=== PATIENT | female | born 1985 | race Caucasian/White ===

== ENCOUNTER 2018-10-24 11:11 | Inpatient (IN) | payer MEDICAID, MEDICARE ==
[~2018-10-24] VITALS: Ht 162.6 cm; Wt 52.1 kg
--- NOTE | 2018-10-24 11:17 | NUR ---
THIS IS A 33 YO FEMALE WHO PRESENTS TO THE ER C/O INABILITY TO EAT/DRINK SINCE SATURDAY. DROOL NOTED AT CORNER OF PT'S MOUTH. PT DENIES PAIN WITH EATING/DRINKING. DENIES SENSATION OF BLOCKAGE. THRUSH NOTED IN PT'S MOUTH. PT REPORTS THAT HAS BEEN THERE "FOR A FEW DAYS'. HAIR APPEARS OILY AND MATTED. 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 PT HAS SPASTIC MOVEMENTS. PT ABLE TO ANSWER ALL QUESTIONS APPROPRIATELY, AO X 4 AND FOLLOW COMMANDS. [facility] 15. PERRLA. SANITOR EQUAL BILATERALLY. PT ABLE TO MOVE ALL EXTREMITIES, WITH SOME SPASTIC MOVEMENTS.
[2018-10-24] MEDS ORDERED: SODIUM CHLORIDE 0.9% 1,000 ML IV ONE (11:28)
[2018-10-24] MEDS ORDERED: SODIUM CHLORIDE FLUSH 10ML SYR IVF ONE (11:30)
[2018-10-24] MEDS ORDERED: LORazepam 2 MG/ML, 1ML IVPush ONE (11:30)
--- NOTE | 2018-10-24 12:00 | NUR ---
REPORT TO KOLE RAMIRES AND LUPILLO WHO ASSUMED CARE OF PT.
--- NOTE | 2018-10-24 12:00 | NUR ---
SBAR REPORT RECEIVED FROM RAJAT SHARIF.
[2018-10-24 12:01] LABS: BASOPHILS # (AUTO) 0.01 x10^3/uL (0-0.1); BASOPHILS % (AUTO) 0 % (0-1); EOSINOPHILS # (AUTO) 0.09 x10^3/uL (0-0.4); EOSINOPHILS % (AUTO) 1 % (1-7); LYMPHOCYTES # (AUTO) 1.06 x10^3/uL (1-3.4); LYMPHOCYTES % (AUTO) 11 % (22-44); MD NO; MEAN CORPUSCULAR HEMOGLOBIN 30.7 pg (27.0-34.8); MEAN PLATELET VOLUME 8.4 fL (7.4-10.4); MONOCYTES # (AUTO) 0.28 x10^3/uL (0.2-0.8); MONOCYTES % (AUTO) 3 % (2-9); NEUTROPHILS # (AUTO) 8.63 x10^3/uL (1.8-6.8); NEUTROPHILS % (AUTO) 86 % (42-75); PLATELET COUNT 257 x10^3/uL (130-400); RED BLOOD COUNT 5.56 x10^6/uL (3.82-5.3)
[2018-10-24] MEDS ORDERED: LORazepam 2 MG/ML, 1ML ONE (12:08)
[2018-10-24 12:12] LABS: ALANINE AMINOTRANSFERASE 58 U/L (12-78); ALBUMIN 4.5 g/dL (3.4-5.0); ANION GAP 7 mmol/L (5-15); CALCIUM 9.2 mg/dL (8.5-10.1); CHLORIDE 103 mmol/L (98-107); CREATININE 0.78 mg/dL (0.55-1.02)
[2018-10-24 12:14] LABS: ALKALINE PHOSPHATASE 79 U/L (45-117); BILIRUBIN,TOTAL 0.6 mg/dL (0.2-1.0); TOTAL PROTEIN 8.3 g/dL (6.4-8.2)
--- NOTE | 2018-10-24 12:15 | NUR ---
PT MEDICATED PER EMAR. PT TOLERATED WELL. PT AOX4. RESPS EVEN AND UNLABORED. SAO2 AND BP MONITORS IN PLACE. CALL LIGHT WITHIN REACH. DENIES ANY NEEDS AND CONCERNS AT THIS TIME.
[2018-10-24 12:34] LABS: ACETONE, SERUM Negative (Negative)
--- NOTE | 2018-10-24 12:38 | NUR ---
PT WAS NOT ABLE TO GO TO BR DUE TO UNSTEADY GAIT. PT PROVIDED BED CHRISTIE TO URINATE FOR UA. UA SENT. PT RESTING IN [facility]. PT AOX4. RESPS EVEN AND UNLABORED. SAO2 AND BP MONITORS IN PLACE. CALL LIGHT WITHIN REACH. DENIES ANY NEEDS AND CONCERNS AT THIS TIME.
[2018-10-24] MEDS ORDERED: AMAN100C7 PO (12:56)
[2018-10-24] MEDS ORDERED: LORA-446 PO (12:57)
[2018-10-24] MEDS ORDERED: MIRT15TA4 PO (12:58)
[2018-10-24] MEDS ORDERED: LORA1TAB PO (12:59)
[2018-10-24 13:05] LABS: CULTURE INDICATED? YES; MICROSCOPIC INDICATED
[2018-10-24 13:06] LABS: HCG UR SG 1.023 (1.003-1.030)
--- NOTE | 2018-10-24 13:17 | NUR ---
REPORT GIVEN TO HECTOR SHARIF. NEURO INTACT. PT AOX4. RESPS EVEN AND UNLABORED. OCCASIONAL JERKING MOVEMENT NOTED. PT ABLE TO MANAGE AIRWAY AND SECRETIONS. NPO STATUS MAINTAINED. ANXIETY DECREASED. AWAITING TRANSPORT TO [facility].
[2018-10-24] MEDS: SODIUM CHLORIDE 0.9% 1,000 ML IV SCH (13:32)
--- NOTE | 2018-10-24 13:38 | NUR ---
PT RESTING IN [facility]. PT AOX4. RESPS EVEN AND UNLABORED. SAO2 AND BP MONITORS IN PLACE. CALL LIGHT WITHIN REACH. DENIES PAIN, ANY NEEDS AND CONCERNS AT THIS TIME.
[2018-10-24] MEDS ORDERED: ONDANSETRON 2MG/ML, 2ML IVPush PRN (14:00)
[2018-10-24] MEDS ORDERED: ACETAMINOPHEN 325 MG TABLET PO PRN (14:00)
[2018-10-24] MEDS ORDERED: DOCUSATE 100 MG CAPSULE PO PRN (14:00)
[2018-10-24] MEDS ORDERED: BISACODYL 10 MG SUPP PR PRN (14:00)
[2018-10-24] MEDS ORDERED: ENALAPRILAT 1.25 MG/ML, 2ML IVPush PRN (14:00)
[2018-10-24] MEDS ORDERED: ONDANSETRON ODT 4 MG PO PRN (14:00)
--- NOTE | 2018-10-24 14:05 | NUR ---
REPORT GIVEN TO ZAKIA SHARIF. NEURO INTACT. PT AOX4. RESPS EVEN AND UNLABORED. OCCASIONAL JERKING MOVEMENT NOTED. PT ABLE TO MANAGE AIRWAY AND SECRETIONS. NPO STATUS MAINTAINED. ANXIETY DECREASED. AWAITING TRANSPORT TO [facility]. DENIES PAIN, ANY NEEDS AND CONCERNS AT THIS TIME.
[2018-10-24 14:50] VITALS: BP 149/96
[2018-10-24 14:51] LABS: HEMOGLOBIN A1C 5.7 % (4.2-6.3)
[2018-10-24] MEDS: ENOXAPARIN 40 MG/0.4 ML SQ SCH (15:00)
--- NOTE | 2018-10-24 15:22 | NUR ---
Mindi lopez in ED - 10/24/18 at 1524 by SOLITARIO NEURO CONSULT COMPLETE. AWAITING RECOMMENDATION AT THIS TIME.
[2018-10-24 16:30] VITALS: BP 104/70
--- NOTE | 2018-10-24 17:29 | NUR ---
NPO [place] sheet with swallow strategies and precautions was placed in patient's room on the whiteboard. Addendum: 10/24/18 at 1730 by TOÑA BENSON Amended: Links added.
[2018-10-24 19:45] VITALS: BP 124/78
[2018-10-24] MEDS: MIRTAZAPINE 15 MG TABLET PO SCH (20:31)
[2018-10-24] MEDS: LORazepam 1MG TABLET PO SCH (20:31)
[2018-10-24] MEDS: AMANTADINE 100 MG CAPSULE PO SCH (20:31)
[2018-10-24 20:54] LABS: MICROSCOPIC AUTO
[2018-10-24 20:57] LABS: CULTURE INDICATED? YES
[2018-10-25 02:19] VITALS: BP 126/85
[2018-10-25 05:51] LABS: ANION GAP 6 mmol/L (5-15); CALCIUM 8.8 mg/dL (8.5-10.1); CHLORIDE 106 mmol/L (98-107); CREATININE 0.74 mg/dL (0.55-1.02)
[2018-10-25 06:01] LABS: THYROID STIMULATING HORMONE 0.637 mIU/L (0.358-3.740)
[2018-10-25 06:03] LABS: BASOPHILS # (AUTO) 0.05 x10^3/uL (0-0.1); BASOPHILS % (AUTO) 1 % (0-1); EOSINOPHILS # (AUTO) 0.28 x10^3/uL (0-0.4); EOSINOPHILS % (AUTO) 4 % (1-7); LYMPHOCYTES % (AUTO) 21 % (22-44); MD NO; MEAN CORPUSCULAR HEMOGLOBIN 31.4 pg (27.0-34.8); MEAN CORPUSCULAR HGB CONC 33.6 g/dL (32.4-35.8); MEAN CORPUSCULAR VOLUME 93.4 fL (80-100); MEAN PLATELET VOLUME 8.4 fL (7.4-10.4); MONOCYTES # (AUTO) 0.66 x10^3/uL (0.2-0.8); MONOCYTES % (AUTO) 8 % (2-9); NEUTROPHILS # (AUTO) 5.35 x10^3/uL (1.8-6.8); NEUTROPHILS % (AUTO) 67 % (42-75); PLATELET COUNT 243 x10^3/uL (130-400); RED BLOOD COUNT 5.06 x10^6/uL (3.82-5.3)
[2018-10-25 07:43] VITALS: BP 121/77
[2018-10-25] MEDS: LORazepam 1MG TABLET PO SCH ×2 (08:55→20:45)
[2018-10-25] MEDS: AMANTADINE 100 MG CAPSULE PO SCH ×2 (08:56→20:45)
[2018-10-25] MEDS: SENNA/DOCUSATE TABLET PO SCH (08:56)
[2018-10-25] MEDS: SODIUM CHLORIDE 0.9% 1,000 ML IV SCH ×2 (09:00→20:56)
--- NOTE | 2018-10-25 11:30 | NUR ---
Recommend: purees/thins, no straws. Swallow precaution sign posted at bedside. Hold PO with any difficulty or change in status. Addendum: 10/25/18 at 1733 by Kary BENSON Amended: Links added.
[2018-10-25 12:40] VITALS: BP 119/71
[2018-10-25] MEDS: ENOXAPARIN 40 MG/0.4 ML SQ SCH (15:00)
[2018-10-25 15:32] VITALS: BP 160/93
[2018-10-25] MEDS ORDERED: LORazepam 2 MG/ML, 1ML IVPush ONE (16:00)
[2018-10-25] MEDS ORDERED: GADOBUTROL 7.5 MMOL/7.5 ML PFS ONE (16:34)
[2018-10-25] MEDS ORDERED: LORazepam 2 MG/ML, 1ML IVPush PRN (17:00)
[2018-10-25 17:25] LABS: AMPHETAMINE SCREEN, URINE Negative (Negative); BARBITURATE SCREEN, URINE Negative (Negative); BENZODIAZEPINE SCREEN, URINE Negative (Negative); CANNABINOID SCREEN, URINE Positive (Negative); COCAINE SCREEN, URINE Negative (Negative); METHADONE SCREEN, URINE Negative (Negative); OPIATE SCREEN, URINE Negative (Negative)
[2018-10-25 19:59] VITALS: BP 152/99
[2018-10-25] MEDS: MIRTAZAPINE 15 MG TABLET PO SCH (20:44)
[2018-10-26 03:51] VITALS: BP 119/81
[2018-10-26] MEDS: SODIUM CHLORIDE 0.9% 1,000 ML IV SCH (05:57)
[2018-10-26 07:26] VITALS: BP 124/82
[2018-10-26] MEDS: LORazepam 1MG TABLET PO SCH ×3 (09:00→11:54)
[2018-10-26] MEDS: SENNA/DOCUSATE TABLET PO SCH ×2 (09:00→09:47)
[2018-10-26] MEDS: DIVALPROEX 250 MG TABLET.DR PO SCH ×3 (09:30→11:54)
[2018-10-26] MEDS ORDERED: DIVA-59 PO (10:11)
== END 2018-10-26 12:40 | disposition home or self-care (01) | DRG 57 ==
LOC: ED 12:54 → EDIP 12:55 → 4WST 14:28
PROVIDERS: ADMIT Hospitalist; ATTEND Hospitalist
DX: G10 Huntington's disease (principal); R56.9 Unspecified convulsions; R13.10 Dysphagia, unspecified; I10 Essential (primary) hypertension; R63.3 Feeding difficulties; W18.2XXA Fall in (into) shower or empty bathtub, initial encounter; J45.909 Unspecified asthma, uncomplicated; Z87.891 Personal history of nicotine dependence; Y92.89 Other specified places as the place of occurrence of the external cause; Y99.8 Other external cause status; Y93.E1 Activity, personal bathing and showering
CPT/HCPCS: 36415; 70450; 70553; 74230; 80048; 80053; 80307; 81001; 81025; 82010; 83036; 83735; 84100; 84443; 85025; 87086; 95819; 96361; 96374; A9585; G0378; 92522-GN; J2060; J7030